=== PATIENT | male | born 1975 | race Caucasian/White ===

== ENCOUNTER 2020-02-14 02:52 | Emergency (ER) | payer BC ==
--- NOTE | 2020-02-14 03:34 | PDOC ---
Attending Attestation - Resident Resident Name: Jimbo Quevedo - ED Attending Attestation I have performed the following: I have examined & evaluated the patient, The case was reviewed & discussed with the resident, I agree w/resident's findings & plan - HPI HPI: 02/14/20 04:31 see resident hpi - Physicial Exam PE: 02/14/20 04:31 see resident exam - Medical Decision Making 02/14/20 04:35 43-year-old male with avulsion laceration to the finger Patient does admit to alcohol use earlier in the day which may be contributing to excessive bleeding Bleeding controlled with Surgicel and pressure dressing Neurovascularly intact with no evidence of tendon injury Discharge - Discharge Information Problems reviewed: Yes Clinical Impression/Diagnosis: Finger laceration - Follow up/Referral Referrals: Mickey Wallis [Primary Care Provider] - - Patient Discharge Instructions - Post Discharge Activity
[2020-02-14 03:38] VITALS: BP 109/77; PULSE 90; TEMP 98; BMI 23.7
--- NOTE | 2020-02-14 03:55 | PDOC ---
History of Present Illness - General Chief Complaint: Injury Stated Complaint: INJURY,FINGER Time Seen by Provider: 02/14/20 03:34 - History of Present Illness Initial Comments: 44 yo male with no significant PMH presents with a finger laceration. Him and his girlfriend were cutting the dogs hair when she accidently clipped his hand in the process about 4 hours ago. He has been drinking alcohol prior to the incident. He has been bleeding without stop since the injury. He endorses being lightheaded. He denies fatigue, sob, cp, nausea, vomiting. He denies any history of clotting disorders. Past History - Medical History Allergies/Adverse Reactions: Allergies Allergy/AdvReac Type Severity Reaction Status Date / Time No Known Allergies Allergy Verified 02/14/20 03:37 - Psycho-Social/Smoking History Smoking History: Never smoked - Substance Abuse Hx (Audit-C & DAST Scrn) How often the patient has a drink containing alcohol: Never Score: In Men: 4 or > Positive; In Women: 3 or > Positive: 0 Screen Result (Pos requires Nsg. Audit-10AR): Negative In the last yr the pt used illegal drug/Rx for NonMed reason: No Score: Yes response is considered Positive: 0 Screen Result (Positive result requires Nsg. DAST-10): Negative Review of Systems - Review of Systems Constitutional: No: Chills, Fever HEENTM: No: Recent change in vision, Double Vision Respiratory: No: Cough, Shortness of Breath Cardiac (ROS): Yes: Lightheadedness. No: Chest Pain ABD/GI: No: Constipated, Diarrhea, Nausea, Vomiting : No: Burning, Dysuria Musculoskeletal: No: Joint Pain, Joint Swelling Integumentary: Yes: Lesions. No: Erythema, Flushing Neurological: No: Headache, Ataxia Psychiatric: No: Anxiety, Depression, Mood Swings Endocrine: No: Intolerance to Cold, Intolerance to Heat Hematologic/Lymphatic: No: Blood Clots, Easy Bleeding, Easy Bruising, Bleeding Diathesis *Physical Exam - Vital Signs Last Vital Signs Temp Pulse Resp BP Pulse Ox 98.0 F 90 20 109/77 98 02/14/20 03:36 02/14/20 03:36 02/14/20 03:36 02/14/20 03:36 02/14/20 03:36 - Physical Exam General Appearance: Yes: Appropriately Dressed. No: Apparent Distress HEENT: positive: EOMI, Normal Voice Neck: negative: Tender, Rigid Respiratory/Chest: positive: Lungs Clear, Normal Breath Sounds. negative: Respiratory Distress Cardiovascular: positive: Regular Rhythm, Regular Rate, S1, S2, JVD. negative: Edema Gastrointestinal/Abdominal: positive: Normal Bowel Sounds, Flat, Soft. negative: Tender Musculoskeletal: positive: Normal Inspection. negative: CVA Tenderness Extremity: positive: Normal Capillary Refill, Normal Inspection, Normal Range of Motion, Other (0.5cm 3rd digit laceration. actively bleeding suggesting arterial). negative: Tender Integumentary: positive: Normal Color, Dry, Warm Neurologic: positive: manager of network II-XII NML intact, Fully Oriented, Alert, Normal Mood/Affect ED Treatment Course - LABORATORY CBC & Chemistry Diagram: 02/14/20 05:36 Medical Decision Making - Medical Decision Making 44 yo with no known PMH presents with a 3rd digit laceration measuring 5mm. Pt is actively bleeding without clotting. Surgicel was placed on the finger to control bleeding. Pt is not a candidate for suture repair due to the the high tensile stress at the PIP joint. He had drank earlier today which may be leading to the coagulopathy. He coags were normal. Pt is stable for discharge once bleeding ceases. 02/14/20 06:16 Discharge - Discharge Information Problems reviewed: Yes Clinical Impression/Diagnosis: Finger laceration Condition: Stable Disposition: HOME - Admission No - Follow up/Referral Referrals: Mickey Wallis [Primary Care Provider] - - Patient Discharge Instructions Patient Printed Discharge Instructions: DI for Laceration Repair Additional Instructions: You were seen in the ED for complaints of a finger laceration In the ED you were evaluated with blood work Your results were negative for a coagulation disorder There does not appear to be an acute need for immediate hospitalization. You are advised to follow up with your Primary Care Physician within 1 week. Return to the ED immediately if you experience worsening bleeding, numbness, tingling, coldness of the finger, inability to move the finger. - Post Discharge Activity
[2020-02-14] MEDS ORDERED: TETANUS AND DIPHTHERIA TOXOID 0.5 ML DISP.SYRIN IM ONE (04:30)
[2020-02-14] MEDS ORDERED: DIPHTH,PERTUSS(ACELL),TET 0.5 ML DISP.SYRIN IM ONE (05:03)
[2020-02-14 05:50] LABS: HEMATOCRIT 44.1 % (35.4-49); HEMOGLOBIN 14.8 GM/dL (11.7-16.9); MCH 30.3 pg (25.7-33.7); MCHC 33.6 g/dl (32.0-35.9); MEAN CELL VOLUME 90.3 fl (80-96); MEAN PLT VOLUME 9.1 fl (7.5-11.1); PLATELET COUNT 179 K/MM3 (134-434); RBC 4.88 M/mm3 (4.00-5.60); RDW 13.1 % (11.9-15.9); WHITE BLOOD COUNT 5.7 K/mm3 (4.0-10.0)
[2020-02-14 06:05] LABS: INR 1.09 (0.83-1.09); PROTHROMBIN TIME (PATIENT) 12.9 SEC (9.7-13.0)
[2020-02-14 06:07] LABS: ACTIVATED PTT 30.5 SECONDS (25.2-36.5)
== END 2020-02-14 06:29 | disposition home or self-care (01) ==
LOC: JER 02:52
PROC: 3E0234Z Introduction of Serum, Toxoid and Vaccine into Muscle, Percutaneous Approach (ICD-10-PCS; principal; 2020-02-14)
DX: S61.219A Laceration without foreign body of unspecified finger without damage to nail, initial encounter (principal)
CPT/HCPCS: 36415; 80307; 85027; 85610; 85730; 99284-25